=== PATIENT | male | born 1965 | race Caucasian/White ===

== ENCOUNTER 2024-09-05 16:21 | Emergency (ER) | payer OTHER, SELFPAY ==
--- NOTE | ~2024-09-05 | XR_ITS ---
EXAMINATION: XR foot RT min 3V DATE: 09/05/2024 16:51 INDICATION: Right foot pain. TECHNIQUE: 4 views of right foot were obtained. COMPARISON: None. FINDINGS: Alignment is normal. No fracture. There is mild osteoarthritis of first metatarsophalangeal joint and some of the interphalangeal joints and talonavicular joint. IMPRESSION: 1. Mild polyarticular osteoarthritis. Reviewed, dictated and finalized at location A. [facility]ONTIST
[2024-09-05 16:40] VITALS: BP 122/65; PULSE 88; RESP 16; TEMP 36.6; O2SAT 98
--- NOTE | 2024-09-05 16:42 | ED.EXTPRO ---
HPI - Extremity Problem General Chief complaint: Extremity Problem,Nontraumatic Stated complaint: R FOOT PAIN/SWELLING Time Seen by Provider: 09/05/24 16:45 Source: patient Mode of arrival: ambulatory Limitations: no limitations History of Present Illness HPI Narrative: Brown is a 58-year-old male patient presenting to the clinic today with complaints of right foot pain and swelling. He reports over the last few days the pain has gotten worse. Feels as though he is swollen to the bottom was foot and also is complaining of some lateral foot pain. Denies any known injury. States that the symptoms are worse at night and in the morning when he gets up. No history of arthritis or gout. Related Data Home Medications ?Medication ?Instructions ?Recorded ?Confirmed ?Last Taken ?Type albuterol sulfate 90 mcg/actuation inhalation 09/05/24 Unknown History aerosol inhaler citalopram 10 mg tablet mg 09/05/24 Unknown History levothyroxine 200 mcg tablet mcg 09/05/24 Unknown History (Synthroid) levothyroxine 25 mcg tablet mcg 09/05/24 Unknown History (Synthroid) tamsulosin 0.4 mg capsule mg PO 09/05/24 Unknown History Allergies Allergy/AdvReac Type Severity Reaction Status Date / Time No Known Allergies Allergy Mild Verified 09/05/24 16:45 Review of Systems Review of Systems: Pertinent positives per HPI. Patient denies any fever, chills, rash, headache, visual changes, dizziness, cough, runny nose, sore throat, shortness of breath, chest pain, palpitations, nausea, vomiting, diarrhea, constipation, abdominal pain, or any urinary issues. PMFSH Comments At the time of my signature, I reviewed and agree with the nursing past medical, surgical, social, and family history. There is no relevant family history pertinent to the patient complaint. Exam Narrative: General: Well-developed, well nourished, in no apparent distress Head: Normocephalic, atraumatic. Cardio: Regular rate and rhythm, s1 and s2 normal, no murmur appreciated. Resp: Clear to auscultation bilaterally, no rhonchi, rales, wheezing or rubs. Musculoskeletal: No deformity, tender to palpation over the right lateral 5th metatarsal and over the arch of the foot near the heel, pain with dorsal flexion against resistance to the arch of the foot, grossly normal range of motion, muscle strength strong and equal, peripheral pulse strong, no edema, no cyanosis, normal gait and station Course Course Emergency Course: Portions of this record may have been created with voice recognition software. Level of Care: Express Care Visit Vital Signs Vital signs: Vital Signs Temperature 36.6 C 09/05/24 16:40 Pulse Rate 88 09/05/24 16:40 Respiratory Rate 16 09/05/24 16:40 Blood Pressure 122/65 09/05/24 16:40 Pulse Oximetry 98 09/05/24 16:40 Temperature 36.6 C 09/05/24 16:40 Pulse Rate 88 09/05/24 16:40 Respiratory Rate 16 09/05/24 16:40 Blood Pressure 122/65 09/05/24 16:40 Pulse Oximetry 98 09/05/24 16:40 Vital signs reviewed MDM - Extremity (Nontraumatic) MDM Narrative Medical decision making narrative: At the time of visit patient is resting comfortably on the exam table. Patient appears to be nontoxic. Diagnostics: X-ray of the right foot was performed and shows mild polyarticular osteoarthritis Plan: I suspect patient has arthritis in his foot as well as likely plantar fasciitis. No sign of bone spur. Will place on a Medrol Dosepak. Supportive measures were discussed with the patient and they voiced understanding discharge instructions and agrees to treatment plan. Return precautions reviewed Differential Diagnosis Differential diagnosis: Likely other (Plantar fasciitis, heel spur, arthritis, gout, foot sprain, foot fracture) Imaging Data Radiologist's impression: ITS Impressions Foot X-Ray 09/05/24 16:56 IMPRESSION: 1. Mild polyarticular osteoarthritis. Discharge Plan Discharge Clinical Impression: Plantar fascia syndrome Osteoarthritis Qualifiers: Osteoarthritis location: foot Osteoarthritis type: primary Laterality: right Qualified Code(s): M19.071 - Primary osteoarthritis, right ankle and foot Patient Disposition: Home, Self-Care Condition: Stable Instructions: Antibiotic Form, Plantar Fasciitis (ED), Osteoarthritis (ED), Plantar Fasciitis Exercises (ED) Additional Instructions: X-rays negative for any sign of fracture or malalignment of the foot. Does show some mild polyarticular arthritis Rest, ice, elevate. May freeze a bottle water and then roll your foot on the frozen bottle to help stretch out the plantar fascia as well as to decrease inflammation to the tendon Tylenol/motrin for pain as discussed. Take Medrol Dosepak as prescribed May apply Aspercreme, blue emu, or lidocaine to the affected area Complete plantar fascia stretches Follow up with your PCP if symptoms persist more than 1 week. Patient Language: [place] Prescriptions: New methylprednisolone [Medrol (Dhiraj)] 4 mg tablets,dose pack See Rx Instructions PO .COMPLEX Qty: 21 0RF Rx Instructions: orally per package directions No Action citalopram 10 mg tablet levothyroxine [Synthroid] 25 mcg tablet tamsulosin 0.4 mg capsule PO levothyroxine [Synthroid] 200 mcg tablet albuterol sulfate 90 mcg/actuation HFA aerosol inhaler INHALATION Follow-up/Referrals: Alessandro,Casper Deluna MD [Primary Care Provider] - Quality NIHSS Nursing Documentation ED NIHSS nursing documentation: reviewed/agree
== END 2024-09-05 17:11 | disposition home or self-care (01) ==
PROVIDERS: Emergency Provider Nurse Practitioner Family; PCP Internal Medicine
DX: M72.2 Plantar fascial fibromatosis (principal); M19.071 Primary osteoarthritis, right ankle and foot
CPT/HCPCS: 73630; 99203; G0463